=== PATIENT | female | born 1980 | race Caucasian/White ===

== ENCOUNTER 2020-10-20 13:31 | Outpatient (REF) | payer OTHER, SELFPAY ==
[2020-10-21 09:48] LABS: CT PCR NOT DETECTED (Not Detect.); NG PCR NOT DETECTED (Not Detect.)
[2020-10-24 20:12] LABS: HPV mRNA E6/E7 rflx Not Detected (Not Detected)
== END 2020-10-20 13:32 | disposition home or self-care (01) ==
LOC: HO.LAB 13:31
PROVIDERS: Visit Provider Advanced Practice Midwife
DX: Z01.419 Encounter for gynecological examination (general) (routine) without abnormal findings (principal); Z11.59 Encounter for screening for other viral diseases; Z11.4 Encounter for screening for human immunodeficiency virus [HIV]; R87.612 Low grade squamous intraepithelial lesion on cytologic smear of cervix (LGSIL); E66.9 Obesity, unspecified; F41.9 Anxiety disorder, unspecified; Z90.13 Acquired absence of bilateral breasts and nipples; Z15.01 Genetic susceptibility to malignant neoplasm of breast
CPT/HCPCS: 87491; 87591; 87624; 87625; 88142

== ENCOUNTER 2022-07-12 09:19 | Outpatient (REF) | payer OTHER, SELFPAY ==
[2022-07-12 15:13] LABS: CT PCR DETECTED (Not Detect.); NG PCR NOT DETECTED (Not Detect.)
[2022-07-13 13:18] LABS: BV Int Neg Control Negative (Negative); BV Int Pos Control Positive (Positive)
== END 2022-07-12 09:20 | disposition home or self-care (01) ==
LOC: HO.LAB 09:19
PROVIDERS: Visit Provider Advanced Practice Midwife
DX: Z11.3 Encounter for screening for infections with a predominantly sexual mode of transmission (principal); N90.89 Other specified noninflammatory disorders of vulva and perineum; Z20.2 Contact with and (suspected) exposure to infections with a predominantly sexual mode of transmission
CPT/HCPCS: 87480; 87491; 87510; 87591; 87660

== ENCOUNTER 2022-07-12 09:32 | Outpatient (REF) | payer OTHER, SELFPAY ==
[2022-07-12 10:40] LABS: Hematocrit 37.1 % (37.0-47.0); Mean Corpuscular HGB Conc 32.3 g/dl (31.0-35.0); Mean Corpuscular Hemoglobin 27.3 pg (27.0-33.0); Mean Corpuscular Volume 84.3 fL (80.0-98.0); Mean Platelet Volume 10.4 fL (9.4-12.3); Platelet Count 229 X10*3/uL (160-400); Red Cell Distribution Width 13.9 % (11.0-16.0); White Blood Count 8.2 X10*3/uL (4.8-10.8)
[2022-07-12 11:32] LABS: HBc Num1 0.06 S/CO (0.00-0.79); HIV AB/AG Nonreactive (Nonreactive); HIV Num 1 0.08 S/CO (0.00-0.99); Hepatitis B Core Antibody Nonreactive (Nonreactive); ~HepC Num1 0.06 S/CO (0.00-0.79); ~Hepatitis C Antibody Nonreactive (Nonreactive)
[2022-07-13 08:23] LABS: Syphilis Screen Nonreactive (Nonreactive)
== END 2022-07-12 09:33 | disposition home or self-care (01) ==
LOC: HO.LAB 09:32
PROVIDERS: PCP Internal Medicine; Visit Provider Advanced Practice Midwife
DX: Z11.4 Encounter for screening for human immunodeficiency virus [HIV] (principal); N92.0 Excessive and frequent menstruation with regular cycle; Z20.2 Contact with and (suspected) exposure to infections with a predominantly sexual mode of transmission
CPT/HCPCS: 36415; 85027; 86704; 86780; 86803; 87389

== ENCOUNTER 2022-08-28 13:23 | Outpatient (REF) | payer OTHER, SELFPAY ==
--- NOTE | ~2022-08-28 | US_ITS ---
EXAMINATION: US PELVIS CLINICAL INFORMATION: Excessive and frequent menstruation COMPARISON: 09/22/2018 TECHNIQUE: Ultrasound of the pelvis is performed using both transabdominal and transvaginal transducers along with Doppler. Transvaginal imaging is performed due to inadequate visualization transabdominally. FINDINGS: Uterus: The uterus is anteverted and measures 7.6 x 3.6 x 3.6 cm. Nabothian cysts at the cervix. The double wall endometrial thickness is 2 mm. The uterus is smooth in contour and has normal myometrial echogenicity. No visible fibroid. Adnexa: Both ovaries are visualized. There is normal color flow to the adnexa. There is no ovarian torsion. There is no pelvic ascites or fluid collection. Right ovary measures 1.9 x 1.6 x 1.6 cm. No adnexal mass. Left ovary measures 2.1 x 1.7 x 1.5 cm. Calcifications are seen. US/US pelvic and transvaginal IMPRESSION: No suspicious or acute findings. No endometrial abnormal thickening. No mass.
== END 2022-08-28 13:24 | disposition home or self-care (01) ==
LOC: HO.US 13:23
PROVIDERS: Visit Provider Advanced Practice Midwife
DX: N92.0 Excessive and frequent menstruation with regular cycle (principal)
CPT/HCPCS: 76830; 76856

== ENCOUNTER 2023-08-23 10:08 | Outpatient (AMB) | payer OTHER, SELFPAY ==
--- NOTE | 2023-08-23 10:15 | MHC.OFFVIS ---
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 Scribed for NISHA Brody by Verito Mendoza biomedical analytical scientist, on 08/23/2023 at 10:28 am EST. Associate Manager Affiliate Marketing Required: No Information Interpreted: non-clinical & clinical It Support Technician: It Support Technician Present (Lupis Hays GUANAKO) Accompanied by: Self / Same As Patient Allergies Sulfa (Sulfonamide Antibiotics) Adverse Reaction (Unknown, Verified 08/23/23 10:19) hives Is last menstrual period known: Yes Last menstrual period: 07/25/23 HPI HPI Comments History of Present Illness Details She is a premenopausal woman presenting for annual exam. Hx of BRCA positive and had breast risk reduction surgery. She opted not to have her ovaries removed. She is considering this in menopause. She plans prefers surveillance yearly with US. Patient admits she tries to eat a healthy diet including Calcium and Vitamin D. She stays active with exercise. Currently not sexually active. On OCP for cycle control and prevention when sexually active. She feels a drop in her emotions prior to her menses while on the active pills. Is interested in not have a menses. Denies vaginal itching and irritation. STD screening offered; she accepts. Denies family hx of ovarian cancer. Last pap smear 10/21/20. She denies any contraindications to control such as: migraines with aura, history of DVT or pulmonary emboli, high blood pressure, liver disease, thrombolic disorders, Lupus, +KAY, or smoking. PFSH Medical History Excessive and frequent menstruation Obesity Tension headache BRCA2 gene mutation positive Surgical History H/O lithotripsy Hx of bilateral mastectomy Family History Paternal Grandfather Liver cancer Colon cancer Maternal Grandfather Leukemia Mother HTN (hypertension) Breast cancer Father High cholesterol Paternal Grandmother Breast cancer Paternal Aunt Breast cancer Social History Household Members: None Housing: House Alcohol intake: current Alcohol intake frequency: holidays/special occasions only Patient Tobacco Use Status: Never used Tobacco Substance Use Type: Marijuana Current occupational status: employed 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 [employer] Sexual orientation: Straight/Heterosexual Gender identity: Female Female Reproductive History Menstrual Age of Menarche: 13 Duration of menses: 3-5 days Date of last menstrual period: 07/25/23 control method: pills Total pregnancies: 0 Date of last pap smear: 10/21/20 Physical Exam Vital Signs: Last Vital Signs BP 122/74 08/23/23 10:18 BMI result Body Mass Index 39.7 Const General: cooperative, healthy appearing, no acute distress, well developed and alert Orientation/consciousness: patient oriented x3 HEENT Head: Yes normal to inspection Eyes General: appearance normal, both eyes and all related structures Neck Neck: Yes normal visual inspection Thyroid: Thyroid normal Chest Other: reconstruction scarring Chest palpation & inspection: normal inspection of the chest Breast/axilla inspection: Other (reconstructive scarring) Breast/axilla palpation: normal palpation of the breasts Resp Effort & Inspection: normal respiratory effort GI Inspection: Yes normal to inspection Palpation (GI): Soft to palpation (to palpation) Rectal Exam - Female: deferred General: Yes bladder normal to inspection External Female Exam: normal external appearance and normal appearance of the urethra Speculum Exam - Vagina: normal appearance of the vagina, normal palpation and normal vaginal discharge Speculum Exam - Cervix: normal appearance of the cervix and normal palpation Bimanual exam- vagina & uterus: normal palpation and normal palpation Bimanual Exam- Adnexa, other: normal adnexae and no masses Skin General skin exam: no rashes or lesions noted Neuro General: patient oriented x3 Cognition (Neuro): normal cognition Extrem General: Yes normal to inspection Psych Attitude: cooperative Thought process: Normal thought process present Results Reviewed Results Reviewed: Laboratory Tests 07/12/22 08:23 Chlam trachomat DNA PCR DETECTED A Gardnerella DNA Probe Positive A Assessment & Plan Assessment & Plan (1) Encounter for well woman exam: Code(s): Z01.419 - Encounter for gynecological examination (general) (routine) without abnormal findings Plan: Discussed: Current recommendations for pap smears per ASCCP guidelines. Breast awareness and periodic self breast exams. Discuss coloscopy screening with PCP. Maintaining a healthy lifestyle including a well balanced diet and routine exercise. All of her questions and concerns were addressed to the best of my ability. RTO in one year for AG. (2) control counseling: Code(s): Z30.09 - Encounter for other general counseling and advice on contraception Plan: Reviewed risk of hormones including possible hypothetical increased risks of developing breast cancer. Pt. prefers to continue with OCP use for the benefits of menstrual cycle control/ prevention. Instructions reviewed: Skip placebo week and take continuously, due to cyclic pattern, trial for 3 months to see if this can omit the change in emotional status she is experiencing. Other potential causes incl: seasonal, events. If experiencing breakthrough bleeding, take a week off OCP and then restart OCP's. Monitor her bleeding and contact the office with any oncerns. She was instructed to go to ER if she develops loss of vision, severe headache that does not resolve, chest pain, difficulty breathing, abdominal pain, or pain or tenderness in extremity. Call the office with any concerns. (3) Potential exposure to STD: Code(s): Z20.2 - Contact with and (suspected) exposure to infections with a predominantly sexual mode of transmission Plan: BV testing and GC/CT panel done today. Await results and treat accordingly. Always use condoms. (4) Excessive and frequent menstruation: Code(s): N92.0 - Excessive and frequent menstruation with regular cycle Plan: Pelvic US ordered. Follow up phone call, pt. does not want a TV if all is normal a phone call is preferred. Annual screening for ovarian anatomy due to BRCA positive status. (5) BRCA2 gene mutation positive: Code(s): Z15.01 - Genetic susceptibility to malignant neoplasm of breast; Z15.09 - Genetic susceptibility to other malignant neoplasm (6) Heavy menstrual bleeding: Code(s): N92.0 - Excessive and frequent menstruation with regular cycle Orders: Orders CT NG by PCR Today N92.0 - Excessive and frequent menstruation with regular cycle Bacterial Vaginosis Panel Today N92.0 - Excessive and frequent menstruation with regular cycle US pelvic and transvaginal Today N92.0 - Excessive and frequent menstruation with regular cycle, Z15.01 - Genetic susceptibility to malignant neoplasm of breast, Z15.09 - Genetic susceptibility to other malignant neoplasm Medications: Changed From drospirenone-ethinyl estradiol 3-0.02 mg 1 tab PO DAILY 84 days 84 tabs 3RF To drospirenone-ethinyl estradiol 3-0.02 mg skip placebo week, continuous dosing 1 tab PO DAILY 84 days 84 tabs 4RF Coding Level of Care Code Est Pt Prev Care 40-64y(27842) Diagnoses Encounter for well woman exam Z01.419 control counseling Z30.09 Potential exposure to STD Z20.2 Excessive and frequent menstruation N92.0 BRCA2 gene mutation positive Z15.01; Z15.09 Heavy menstrual bleeding N92.0
[2023-08-23 10:18] VITALS: BP 122/74; BMI 39.7
== END 2023-08-23 10:58 | disposition home or self-care (01) ==
PROVIDERS: PCP Internal Medicine; Visit Provider Advanced Practice Midwife
DX: Z01.419 Encounter for gynecological examination (general) (routine) without abnormal findings (principal); Z30.09 Encounter for other general counseling and advice on contraception; Z20.2 Contact with and (suspected) exposure to infections with a predominantly sexual mode of transmission; N92.0 Excessive and frequent menstruation with regular cycle; Z15.01 Genetic susceptibility to malignant neoplasm of breast; Z15.09 Genetic susceptibility to other malignant neoplasm
CPT/HCPCS: 99396

== ENCOUNTER 2023-08-23 10:08 | Outpatient (REF) | payer OTHER, SELFPAY ==
[2023-08-23 17:24] LABS: CT PCR NOT DETECTED (Not Detect.); NG PCR NOT DETECTED (Not Detect.)
[2023-08-25 11:20] LABS: BV Int Neg Control Negative (Negative); BV Int Pos Control Positive (Positive)
== END 2023-08-23 10:09 | disposition home or self-care (01) ==
LOC: HO.LNP 10:08
PROVIDERS: PCP Internal Medicine; Visit Provider Advanced Practice Midwife
DX: Z01.419 Encounter for gynecological examination (general) (routine) without abnormal findings (principal); N92.0 Excessive and frequent menstruation with regular cycle; Z15.01 Genetic susceptibility to malignant neoplasm of breast; Z15.09 Genetic susceptibility to other malignant neoplasm; Z20.2 Contact with and (suspected) exposure to infections with a predominantly sexual mode of transmission
CPT/HCPCS: 0353U; 87480; 87510; 87660; 99396

== ENCOUNTER 2023-08-23 11:09 | Outpatient (REF) | payer OTHER, SELFPAY | END 2023-08-23 11:10 | disposition home or self-care (01) | LOC: HO.LAB 11:09 | PROVIDERS: Visit Provider Advanced Practice Midwife | DX: Z13.89 Encounter for screening for other disorder (principal) ==

== ENCOUNTER 2023-11-29 15:11 | Outpatient (REF) | payer OTHER, SELFPAY | END 2023-11-29 15:12 | disposition home or self-care (01) | LOC: HO.US 15:11 | PROVIDERS: PCP Internal Medicine; Visit Provider Advanced Practice Midwife | DX: Z15.01 Genetic susceptibility to malignant neoplasm of breast (principal); Z15.09 Genetic susceptibility to other malignant neoplasm; N92.0 Excessive and frequent menstruation with regular cycle | CPT/HCPCS: 76830; 76856 ==